=== PATIENT | female | born 1970 | race Caucasian/White ===

== ENCOUNTER 2018-10-26 13:38 | Emergency (ER) | payer OTHER ==
[~2018-10-26] VITALS: Ht 162.6 cm; Wt 81.6 kg
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
[2018-10-26 14:08] LABS: APPEARANCE,URINE Clear (CLEAR); BILIRUBIN,URINE Negative (NEGATIVE); BLOOD, URINE Negative Ery/uL (NEGATIVE); COLOR,URINE Yellow (YELLOW); KETONES,URINE Trace (NEGATIVE); LEUKOCYTE ESTERASE ,URINE Negative (NEGATIVE); NITRITE, URINE Negative (NEGATIVE); PH,URINE 8.5 (5.0-8.0); PROTEIN,URINE Trace mg/dl (NEGATIVE); UGLUCOSE Negative (NEGATIVE)
[2018-10-26 14:08] LABS: BASOPHILS # (AUTO) 0.1 /CMM (0.0-0.2); BASOPHILS % (AUTO) 0.6 % (0.0-2.0); EOSINOPHILS % (AUTO) 2.4 % (0.0-6.0); HEMATOCRIT 38 % (33-45); HEMOGLOBIN 12.9 g/dL (11.5-14.8); LYMPHOCYTES # (AUTO) 1.5 /CMM (0.8-4.8); LYMPHOCYTES % (AUTO) 15.8 % (20.0-44.0); MEAN CORPUSCULAR HGB CONC 34 g/dl (31.0-36.0); MEAN CORPUSCULAR VOLUME 94 fL (82-100); MONOCYTES # (AUTO) 0.7 /CMM (0.1-1.30); MONOCYTES % (AUTO) 7.9 % (2.0-12.0); NEUTROPHILS # (AUTO) 6.8 /CMM (1.8-8.9); NEUTROPHILS % (AUTO) 73.3 % (43.0-81.0); PLATELET COUNT (AUTO) 189 /CMM (150-450); RED BLOOD CELL COUNT(AUTO) 4.02 MIL/uL (4.0-5.2); WHITE BLOOD COUNT (AUTO) 9.2 K/uL (4.3-11.0)
[2018-10-26 14:17] LABS: CARBON DIOXIDE 28 mmol/L (21-32); CHLORIDE 107 mmol/L (98-107); CREATININE 0.7 mg/dL (0.6-1.3); GLUCOSE 100 mg/dL (74-106); POTASSIUM 3.5 mmol/L (3.5-5.1); SODIUM SERUM 141 mmol/L (136-145); UREA NITROGEN, BLOOD 9 mg/dL (7-18)
[2018-10-26 14:19] LABS: RBC,URINE 0-2 /HPF (0-2); WBC,URINE 0-2 /HPF (0-3)
[2018-10-26 14:20] LABS: BACTERIA,URINE Moderate /HPF (None Seen); SQUAMOUS EPITHELIAL CELL,UR Rare /HPF (None Seen)
[2018-10-26 14:23] LABS: ACETAMINOPHEN 1 ug/ml (10-30); ALANINE AMINOTRANSFERASE 41 U/L (12-78); ALBUMIN 2.8 g/dL (3.4-5.0); ALKALINE PHOSPHATASE 73 U/L (46-116); ASPARTATE AMINOTRANSFERASE 33 U/L (15-37); BILIRUBIN,DIRECT 0.1 mg/dL (0.0-0.2); BILIRUBIN,TOTAL 0.3 mg/dL (0.2-1.0); SALICYLATE 3.4 mg/dL (2.8-20.0); TOTAL PROTEIN, SERUM 5.3 g/dL (6.4-8.2)
[2018-10-26 14:24] LABS: ALCOHOL, BLOOD < 3 mg/dL (0-0)
--- NOTE | 2018-10-26 14:30 | NUR ---
PROVIDED W MEAL TRAY, TOLERATING PO WELL
--- NOTE | 2018-10-26 14:52 | NUR ---
PINKY ETA 1 HR
--- NOTE | 2018-10-26 15:35 | NUR ---
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
--- NOTE | 2018-10-26 16:37 | NUR ---
REPORT GIVEN TO [facility]I Cavanaugh ([facility] N[facility])
--- NOTE | 2018-10-26 16:41 | NUR ---
JORGE ARNOLD TO NIDIA LAM [id number] TRIP#[id number] Addendum: 10/26/18 at 1717 by SINDHU GOING TO [facility]
[2018-10-26] MEDS ORDERED: LORAZEPAM 1 MG TABLET ONE (17:44)
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
[2018-10-26 17:58] VITALS: BP 109/68
[2018-10-26] MEDS ORDERED: LORAZEPAM 1 MG TABLET PO ONE (18:00)
--- NOTE | 2018-10-26 18:00 | NUR ---
PT SIGNED HOMELESS PATIENT WAIVER FORM.
--- NOTE | 2018-10-26 18:55 | NUR ---
Patient discharged to [facility] in stable condition. Written and verbal after care instructions given. Patient verbalizes understanding of instruction. Pt will be brought to [facility].
== END 2018-10-26 19:02 ==
LOC: ER 13:48
DX: R45.851 Suicidal ideations (principal)
CPT/HCPCS: 36415; 80048; 80076; 80305; 80307; 80329; 81001; 84703; 85025; 87086; 99285; G0480; 81000-TC